=== PATIENT | female | born 1985 | race Caucasian/White ===

== ENCOUNTER 2017-01-17 15:32 | Emergency (ER) | payer SELFPAY ==
[2017-01-17 15:52] VITALS: BP 140/78
--- NOTE | 2017-01-17 16:11 | UC ---
Respiratory Complaint HPI - HPI Summary HPI Summary: 31 yo female with cough sore throat/runny nose x a week or so now wheezing and out of her rescue inhaler no f/c low energy - History of Current Complaint Chief Complaint: UCRespiratory Stated Complaint: SORE THROAT,COUGH,CONGESTION Time Seen by Provider: 01/17/17 15:55 Hx Obtained From: Patient Hx Last Menstrual Period: 1 WEEK AGO Onset/Duration: Gradual Onset Timing: Constant Severity Initially: Moderate Severity Currently: Moderate Pain Intensity: 4 Pain Scale Used: 0-10 Numeric Character: Cough: Nonproductive Aggravating Factors: Nothing Alleviating Factors: Nothing Associated Signs And Symptoms: Positive: Wheezing, Nasal Congestion, Hoarseness , Sinus Discomfort - Allergies/Home Medications Allergies/Adverse Reactions: Allergies Allergy/AdvReac Type Severity Reaction Status Date / Time Sulfa Drugs Allergy Unknown Unknown Verified 01/17/17 15:52 Reaction Details Home Medications: Home Medications Loratadine [Claritin 10 MG CAP] 10 mg PO PRN 01/17/17 [History] PMH/Surg Hx/FS Hx/Imm Hx Previously Healthy: Yes Cardiovascular History: Hypertension Respiratory History: Asthma - Surgical History Surgical History: Yes Surgery Procedure, Year, and Place: C SECTION, CHOLECYSTECTOMY - Family History Known Family History: Positive: Cardiac Disease - gradmother CHF, Hypertension - Social History Alcohol Use: None Substance Use Type: None Smoking Status (MU): Never Smoked Tobacco - Immunization History Most Recent Influenza Vaccination: 05/16/15 (Nasal Mist) Review of Systems Constitutional: Fatigue Skin: Negative Eyes: Negative ENT: Sore Throat, Nasal Discharge, Sinus Congestion, Sinus Pain/Tenderness Respiratory: Cough, Other - wheezing Cardiovascular: Negative Gastrointestinal: Negative Genitourinary: Negative Motor: Negative Neurovascular: Negative Musculoskeletal: Negative Neurological: Negative Psychological: Negative All Other Systems Reviewed And Are Negative: Yes Physical Exam Triage Information Reviewed: Yes Appearance: Well-Appearing, No Pain Distress, Well-Nourished Vital Signs: Initial Vital Signs Temp 97.8 F 01/17/17 15:49 Pulse 73 01/17/17 15:49 Resp 18 01/17/17 15:49 BP 140/78 01/17/17 15:49 Pulse Ox 100 01/17/17 15:49 Vital Signs Reviewed: Yes Eyes: Positive: Conjunctiva Inflamed - L, Discharge - L ENT: Positive: Hearing grossly normal, Pharyngeal erythema, Nasal congestion, Nasal drainage, Tonsillar swelling, Other: - hoarse/bilat mild max sinus tenderness. Negative: Tonsillar exudate, Trismus Neck: Positive: Supple, Nontender, No Lymphadenopathy Respiratory: Positive: Normal breath sounds, No respiratory distress, No accessory muscle use, Wheezing - with forced expiration only Cardiovascular: Positive: RRR, No Murmur Musculoskeletal: Positive: ROM Intact, No Edema Neurological Exam: Normal Neurological: Positive: Alert Psychological Exam: Normal Skin Exam: Normal UC Diagnostic Evaluation - Laboratory O2 Sat by Pulse Oximetry: 100 - normal/not hypoxic Respiratory Course/Dx - Differential Dx/Diagnosis Provider Diagnoses: acute bronchitis. conjunctivitis Discharge - Discharge Plan Condition: Stable Disposition: HOME Prescriptions: Albuterol HFA INHALER* [Ventolin HFA Inhaler*] 2 puff INH QID #1 mdi Amoxicillin (*) [Amoxicillin 875 MG (*)] 875 mg PO BID #20 tab Polymyx/Trimethoprim OPTH* [Polytrim OPHTH*] 1 - 2 drop LEFT EYE QID #1 btl Prednisone [Deltasone] 40 mg PO DAILY #10 tab Patient Education Materials: Acute Bronchitis (ED), Conjunctivitis (ED) Forms: *Work Release Referrals: June MCCARTY,Gabriel Birch [Primary Care Provider] - 4 Days (if not better BP needs following in a few weeks) Additional Instructions: recheck for new or worsening symptoms
== END 2017-01-17 16:19 | disposition home or self-care (01) ==
LOC: UCEAST 15:32
DX: J40 Bronchitis, not specified as acute or chronic (principal); H10.9 Unspecified conjunctivitis
CPT/HCPCS: 99212; G0463

== ENCOUNTER 2017-03-08 16:30 | Emergency (ER) | payer SELFPAY ==
--- NOTE | 2017-03-08 16:43 | UC ---
Skin Complaint HPI - History of Current Complaint Hx Last Menstrual Period: 1 WEEK AGO <Ousmane Gibbons - Last Filed: 03/08/17 16:43> - HPI Summary HPI Summary: Pt presents with sudden onset of pruritic, "bites" on right anterior lower leg that t began as erythematous, purritic "bites, and pt applied OTC corticosteroid cream with improvement of c/o pruritis and woke this morning with octavio, fluid filled blisters that 3 out of 4 blisters ruptured and draining clear serous fluid. 1 blister remains intact with clear fluid ~ dime size. - History of Current Complaint Hx Obtained From: Patient Onset/Duration: Gradual Onset, Lasting Hours - 8, Still Present, Worse Since - blistered since onset. Skin Exposure Onset/Duration: Hours Ago Timing: Constant Onset Severity: Mild Current Severity: Mild Location: Discrete - left anterior left ankle, lower leg Character: Swelling, Pruritus, Raised - blisters Aggravating: Touch Alleviating: OTC Creams/Salves - corticosteroid, improved pruritis Associated Signs & Symptoms: Positive: Rash Related History: Insect Bite/Sting - possible <Marie Gomez NP - Last Filed: 03/08/17 17:25> - History of Current Complaint Time Seen by Provider: 03/08/17 16:42 Stated Complaint: RIGHT FOOT SKIN ISSUE - Allergy/Home Medications Allergies/Adverse Reactions: Allergies Allergy/AdvReac Type Severity Reaction Status Date / Time Sulfa Drugs Allergy Unknown Unknown Verified 03/08/17 16:53 Reaction Details Review of Systems Constitutional: Negative Skin: Rash, Other - blisters Eyes: Negative ENT: Negative Respiratory: Negative Cardiovascular: Negative Gastrointestinal: Negative Genitourinary: Negative Motor: Negative Neurovascular: Negative Musculoskeletal: Negative Neurological: Negative Psychological: Negative All Other Systems Reviewed And Are Negative: Yes <Marie Gomez NP - Last Filed: 03/08/17 17:25> PMH/Surg Hx/FS Hx/Imm Hx - Surgical History Surgical History: Yes Surgery Procedure, Year, and Place: C SECTION, CHOLECYSTECTOMY - Family History Known Family History: Positive: Cardiac Disease - gradmother CHF, Hypertension - Social History Alcohol Use: None Substance Use Type: None Smoking Status (MU): Never Smoked Tobacco - Immunization History Most Recent Influenza Vaccination: 05/16/15 (Nasal Mist) <Ousmane Gibbons - Last Filed: 03/08/17 16:43> Previously Healthy: Yes - Social History Occupation: Employed Full-time Lives: With Family Alcohol Use: None Substance Use Type: None Smoking Status (MU): Never Smoked Tobacco Have You Smoked in the Last Year: No <Marie Gomez NP - Last Filed: 03/08/17 17:25> Physical Exam Triage Information Reviewed: Yes Appearance: Well-Appearing Vital Signs: Initial Vital Signs Temp 97.6 F 03/08/17 16:46 Pulse 76 03/08/17 16:46 Resp 18 03/08/17 16:46 BP 154/89 03/08/17 16:46 Pulse Ox 97 03/08/17 16:46 Vital Signs Reviewed: Yes Eye Exam: Normal ENT Exam: Normal Dental Exam: Normal Neck exam: Normal Respiratory Exam: Normal Cardiovascular Exam: Normal Musculoskeletal Exam: Normal Neurological Exam: Normal Psychological Exam: Normal Skin: Positive: rashes - 4 blisters, 3 ruptured and draining serous fluif. mild erythema surrounding ruptured and intact blister. 4th blister clear fluid blister intact, non tender, <Marie Gomez NP - Last Filed: 03/08/17 17:25> Course/Dx - Differential Diagnoses - Skin Complaint Differential Diagnoses: Cellulitis, Contact Dermatitis, Impetigo - Diagnoses Provider Diagnoses: impetigo. contact dermatits. cellulitis-? <Marie Gomez NP - Last Filed: 03/08/17 17:25> Discharge <Ousmane Gibbons - Last Filed: 03/08/17 16:43> <Marie Gomez NP - Last Filed: 03/08/17 17:25> - Discharge Plan Condition: Stable Disposition: HOME Prescriptions: Cephalexin CAP* [Keflex 500 CAP*] 500 mg PO Q12H #14 cap Mupirocin 2% OINT* [Bactroban 2 % Oint*] 1 applic TOPICAL BID #1 tube Patient Education Materials: Impetigo (ED), Contact Dermatitis (ED) Referrals: June MCCARTY,Gabriel Birch [Primary Care Provider] - If Needed
[2017-03-08 16:53] VITALS: BP 154/89
== END 2017-03-08 17:50 | disposition home or self-care (01) ==
LOC: UCCORT 16:30
DX: L01.00 Impetigo, unspecified (principal); L25.9 Unspecified contact dermatitis, unspecified cause; Z88.2 Allergy status to sulfonamides; Z90.49 Acquired absence of other specified parts of digestive tract
CPT/HCPCS: 87070; 87077; 87186; 87205; 87640; 87641; 99211; G0463

== ENCOUNTER → 2017-04-14 18:36 | Emergency (ER) | payer SELFPAY ==
[~2017-04-14 18:36] MED LIST: PPD test dose* 5 TU/0.1 ML TEST (*USE PPD ORDER SET*) ONE
== END | disposition home or self-care (01) ==
LOC: UCCORT 18:36
DX: Z11.1 Encounter for screening for respiratory tuberculosis (principal)

== ENCOUNTER 2017-12-28 20:50 | Emergency (ER) | payer BC ==
[2017-12-28 21:06] VITALS: BP 146/77
[2017-12-28] MEDS ORDERED: Albuterol/Ipratropium NEB.SOL* Albuterol 2.5 MG/Ipratropium 0.5 MG 3 ML INH ONE (21:11)
[2017-12-28] MEDS ORDERED: Dexamethasone IV* 4 MG/ML 1 ML (4 MG) ONE (21:11)
--- NOTE | 2017-12-28 21:27 | ED ---
Respiratory - HPI Summary HPI Summary: 32yr old female with complaint of SOB, wheezing. Onset a couple of days ago. She states she gets allergies and that they moved down into her chest. She states she has had asthma attacks before and this feels like one. She states she has had URI, allergy type symptoms. She states she usually gets put on a z pack that also helps in addition to steroids. - History of Current Complaint Chief Complaint: UCRespiratory Stated Complaint: CONGESTION UPPER RESPIRATORY Time Seen by Provider: 12/28/17 21:08 Pain Intensity: 0 - Allergy/Home Medications Allergies/Adverse Reactions: Allergies Allergy/AdvReac Type Severity Reaction Status Date / Time Sulfa (Sulfonamide Allergy Rash Verified 12/28/17 21:01 Antibiotics) Home Medications: Home Medications Albuterol HFA INHALER* [Ventolin HFA Inhaler*] 2 puff INH Q6H PRN 12/28/17 [ History Confirmed 12/28/17] PMH/Surg Hx/FS Hx/Imm Hx Endocrine/Hematology History: Denies: Hx Diabetes, Hx Thyroid Disease Cardiovascular History: Reports: Hx Hypertension - not on medication Respiratory History: Reports: Hx Asthma Denies: Hx Chronic Obstructive Pulmonary Disease (COPD) GI History: Denies: Hx Ulcer - Surgical History Surgery Procedure, Year, and Place: C SECTION, CHOLECYSTECTOMY Infectious Disease History: No Infectious Disease History: Denies: Hx Clostridium Difficile, Hx Hepatitis, Hx Human Immunodeficiency Virus (HIV), Hx of Known/Suspected MRSA, Hx Shingles, Hx Tuberculosis, Hx Known/ Suspected VRE, Hx Known/Suspected VRSA, History Other Infectious Disease, Traveled Outside the in Last 30 Days - Family History Known Family History: Positive: Cardiac Disease - gradmother CHF, Hypertension - Social History Alcohol Use: None Substance Use Type: Reports: None Smoking Status (MU): Never Smoked Tobacco Have You Smoked in the Last Year: No Review of Systems Constitutional: Negative Positive: Shortness Of Breath, Cough All Other Systems Reviewed And Are Negative: Yes Physical Exam Triage Information Reviewed: Yes Vital Signs On Initial Exam: Initial Vitals Temp Pulse Resp BP Pulse Ox 99.6 F 88 22 146/77 100 12/28/17 20:58 12/28/17 20:58 12/28/17 20:58 12/28/17 20:58 12/28/17 20:58 Vital Signs Reviewed: Yes Appearance: Positive: Ill-Appearing - SOB, Obese Skin: Positive: Warm, Skin Color Reflects Adequate Perfusion Head/Face: Positive: Normal Head/Face Inspection Eyes: Positive: EOMI ENT: Positive: Normal ENT inspection Neck: Positive: Nontender Respiratory/Lung Sounds: Positive: Decreased Breath Sounds - bilateral Cardiovascular: Positive: RRR. Negative: Murmur Abdomen Description: Positive: Other: - obese Musculoskeletal: Positive: Normal Neurological: Positive: Sensory/Motor Intact, Alert, Oriented to Person Place, Time, CN Intact II-III Psychiatric: Positive: Normal Diagnostics - Vital Signs Vital Signs Temp Pulse Resp BP Pulse Ox 12/28/17 20:58 99.6 F 88 22 146/77 100 - Laboratory Lab Statement: Any lab studies that have been ordered have been reviewed, and results considered in the medical decision making process. Re-Evaluation - Re-Evaluation First Eval Re-Evaluation Time: 21:45 Change: Improved Comment: Air movement is much better and no wheezing. Appears more comfortable. Disposition - Course Course Of Treatment: 32 yr old female with asthmatic bronchitis exacerbation. Z pack, and also steroids. She states she has plenty of albuterol MDI at home. - Diagnoses Provider Diagnoses: Asthmatic bronchitis with acute exacerbation Discharge - Sign-Out/Discharge Documenting (check all that apply): Discharge/Admit/Transfer - Discharge Plan Condition: Good Disposition: HOME Prescriptions: Azithromycin TAB* [Zithromax TAB (Z-JANEEN) 250 mg #6 tabs] 2 tab PO .TODAY, THEN 1 DAILY #1 janeen predniSONE TAB* [Deltasone 20 MG TAB*] 40 mg PO DAILY #8 tab Patient Education Materials: Bronchospasm (ED), Hypertension (ED) Forms: *Work Release Referrals: Gabriel Stout [Primary Care Provider] - 2 Days - Billing Disposition and Condition Condition: GOOD Disposition: Home
[2017-12-28] MEDS ORDERED: Azithromycin TAB* 250 MG PO ONE (21:44)
== END 2017-12-28 22:03 | disposition home or self-care (01) ==
LOC: UCCORT 20:50
DX: J45.901 Unspecified asthma with (acute) exacerbation (principal); Z88.2 Allergy status to sulfonamides
CPT/HCPCS: 99213; A9270-GY; G0463; J1100

== ENCOUNTER 2018-02-07 14:40 | Emergency (ER) | payer BC, OTHER ==
[2018-02-07 14:58] VITALS: BP 150/84
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
== END 2018-02-07 15:22 | disposition home or self-care (01) ==
LOC: UCEAST 14:40
DX: S61.401A Unspecified open wound of right hand, initial encounter (principal); J45.909 Unspecified asthma, uncomplicated; Z88.2 Allergy status to sulfonamides; W01.0XXA Fall on same level from slipping, tripping and stumbling without subsequent striking against object, initial encounter; Y93.01 Activity, walking, marching and hiking; Y92.9 Unspecified place or not applicable
CPT/HCPCS: 99212; G0463

== ENCOUNTER 2019-07-22 10:07 | Emergency (ER) | payer BC, OTHER ==
[2019-07-22 10:41] VITALS: BP 118/81
--- NOTE | 2019-07-22 11:30 | UC ---
FLU HPI - HPI Summary HPI Summary: Sore throat and R swollen gland x 6 days. Feels fatigued.INtermittent fevers at home. nothing makes better/worse. - History of Current Complaint Chief Complaint: UCRespiratory Stated Complaint: CONGESTION,ST Time Seen by Provider: 07/22/19 11:21 Hx Obtained From: Patient Hx Last Menstrual Period: 12/20/17 Pain Intensity: 8 Pain Scale Used: 0-10 Numeric - Allergy/Home Medications Allergies/Adverse Reactions: Allergies Allergy/AdvReac Type Severity Reaction Status Date / Time Sulfa (Sulfonamide Allergy Rash Verified 02/07/18 14:58 Antibiotics) Home Medications: Home Medications Ibuprofen TAB* [Motrin TAB* 400 MG] 400 mg PO Q6H PRN 07/22/19 [History Confirmed 07/22/19] PMH/Surg Hx/FS Hx/Imm Hx Previously Healthy: Yes Respiratory History: Asthma - Surgical History Surgical History: Yes Surgery Procedure, Year, and Place: C SECTION, CHOLECYSTECTOMY - Family History Known Family History: Positive: Cardiac Disease - gradmother CHF, Hypertension - Social History Alcohol Use: Occasionally Substance Use Type: None Smoking Status (MU): Never Smoked Tobacco Have You Smoked in the Last Year: No - Immunization History Most Recent Influenza Vaccination: 05/16/15 (Nasal Mist) Review of Systems All Other Systems Reviewed And Are Negative: Yes Constitutional: Positive: Fever, Fatigue. Negative: Chills Skin: Negative: Rash ENT: Positive: Sore Throat, Sinus Congestion, Other - swollen glands Respiratory: Negative: Shortness Of Breath, Cough Cardiovascular: Negative: Palpitations Gastrointestinal: Negative: Vomiting, Diarrhea, Nausea Physical Exam Triage Information Reviewed: Yes Appearance: Well-Appearing Vital Signs: Initial Vital Signs Temp 98.5 F 07/22/19 10:38 Pulse 101 07/22/19 10:38 Resp 18 07/22/19 10:38 BP 118/81 07/22/19 10:38 Pulse Ox 96 07/22/19 10:38 Vital Signs Reviewed: Yes Eyes: Positive: Conjunctiva Clear ENT: Positive: Pharyngeal erythema, Nasal congestion, TMs normal, Tonsillar swelling - R, Tonsillar exudate Neck: Positive: Supple Respiratory Exam: Normal Cardiovascular Exam: Normal Skin: Negative: Rashes Flu Course/Dx - Course Course Of Treatment: Pharyngitis w/ lymphadenopathy but neg. strep today. Vitals good. did not get flu shot this year. rapid flu was neg. Plan is to tx w/ garggling warm/salty water, iburpofen but strongly advised to go to ED should she develop drooling, fever, nucha rigidity. she verbalized understanding. on exam there was tonsillitis noted. - Differential Dx/Diagnosis Differential Diagnosis/HQI/PQRI: Upper Respiratory Infection, Other Provider Diagnosis: Pharyngitis Discharge ED - Sign-Out/Discharge Documenting (check all that apply): Patient Departure All imaging exams completed and their final reports reviewed: No Studies - Discharge Plan Condition: Good Disposition: HOME Patient Education Materials: Pharyngitis (ED) Referrals: Gabriel Watkins PA [Primary Care Provider] - Additional Instructions: PLease see your pcp if fever or worsening symptoms develop. - Billing Disposition and Condition Condition: GOOD Disposition: Home
[2019-07-22 12:33] LABS: Influenza A Molecular NEGATIVE (Negative); Influenza B Molecular NEGATIVE (Negative)
== END 2019-07-22 12:40 | disposition home or self-care (01) ==
LOC: UCCORT 10:07
DX: J02.9 Acute pharyngitis, unspecified (principal); J45.909 Unspecified asthma, uncomplicated; Z88.2 Allergy status to sulfonamides
CPT/HCPCS: 87651; 99211; G0463

== ENCOUNTER 2019-07-23 10:10 | Emergency (ER) | payer BC ==
--- NOTE | 2019-07-23 10:32 | ED ---
Throat Pain/Nasal Congestion - HPI Summary HPI Summary: 33-year-old female with no significant past medical history presents to the emergency department today complaining of throat pain and trouble swallowing which began approximately 4 days ago. She states she was seen at urgent care yesterday and had a negative strep test and was not given any medication. She states her pain has since gotten worse and reports it as a 6 out of 10 pain. She denies cough but states she has had a fever. She also endorses lymphadenopathy of her neck. Patient denies dental pain, trouble breathing, chest pain, abdominal pain, shortness of breath, rash. Patient denies recent alcohol use or recreational drug use. Family history and social history are noncontributory. - History of Current Complaint Chief Complaint: EDThroatPain Time Seen by Provider: 07/23/19 10:20 Hx Obtained From: Patient Onset/Duration: Gradual Onset Severity: Moderate Associated Signs And Symptoms: Positive: Dysphagia. Negative: Drooling, Wheezing, Hoarseness Cough: None - Allergies/Home Medications Allergies/Adverse Reactions: Allergies Allergy/AdvReac Type Severity Reaction Status Date / Time Sulfa (Sulfonamide Allergy Rash Verified 02/07/18 14:58 Antibiotics) PMH/Surg Hx/FS Hx/Imm Hx Endocrine/Hematology History: Denies: Hx Diabetes, Hx Thyroid Disease Cardiovascular History: Reports: Hx Hypertension - not on medication Respiratory History: Reports: Hx Asthma Denies: Hx Chronic Obstructive Pulmonary Disease (COPD) GI History: Denies: Hx Ulcer - Surgical History Surgery Procedure, Year, and Place: C SECTION, CHOLECYSTECTOMY Infectious Disease History: No Infectious Disease History: Denies: Hx Clostridium Difficile, Hx Hepatitis, Hx Human Immunodeficiency Virus (HIV), Hx of Known/Suspected MRSA, Hx Shingles, Hx Tuberculosis, Hx Known/ Suspected VRE, Hx Known/Suspected VRSA, History Other Infectious Disease, Traveled Outside the [place] in Last 30 Days - Family History Known Family History: Positive: Cardiac Disease - gradmother CHF, Hypertension - Social History Alcohol Use: Occasionally Substance Use Type: Reports: None Smoking Status (MU): Never Smoked Tobacco Have You Smoked in the Last Year: No Review of Systems Positive: Fever Eyes: Negative Positive: Sore Throat. Negative: Epistaxis, Dental Pain Cardiovascular: Negative Respiratory: Negative Gastrointestinal: Negative Genitourinary: Negative Musculoskeletal: Negative Skin: Negative Neurological: Negative Psychological: Normal All Other Systems Reviewed And Are Negative: Yes Physical Exam - Summary Physical Exam Summary: Inspection of the posterior pharynx reveals significant tonsillar edema, erythema which is symmetric. Uvula is midline with no evidence of peritonsillar abscess. Patient is able to manage her secretions and has normal voice. There is mild tonsillar exudate noted bilaterally. There is significant anterior cervical lymphadenopathy bilaterally. Triage Information Reviewed: Yes Vital Signs On Initial Exam: Initial Vitals Temp Pulse Resp BP Pulse Ox 99.5 F 98 18 127/98 96 07/23/19 10:12 07/23/19 10:12 07/23/19 10:12 07/23/19 10:12 07/23/19 10:12 Vital Signs Reviewed: Yes Appearance: Positive: Well-Appearing, No Pain Distress, Well-Nourished Skin: Positive: Warm, Skin Color Reflects Adequate Perfusion Eyes: Positive: EOMI, GRETA ENT: Positive: Tonsillar swelling, Tonsillar exudate, Uvula midline. Negative: Muffled voice, Hoarse voice, Dental tenderness, Sinus tenderness Neck: Negative: No Lymphadenopathy Respiratory/Lung Sounds: Positive: Clear to Auscultation, Breath Sounds Present Cardiovascular: Positive: RRR, S1, S2 Abdomen Description: Positive: Nontender, Soft Bowel Sounds: Positive: Present Musculoskeletal: Positive: Strength/ROM Intact Neurological: Positive: Sensory/Motor Intact, Alert, Oriented to Person Place, Time, Normal Gait, Speech Normal Psychiatric: Positive: Normal AVPU Assessment: Alert Procedures - Sedation Patient Received Moderate/Deep Sedation with Procedure: No Diagnostics - Vital Signs Vital Signs Temp Pulse Resp BP Pulse Ox 07/23/19 10:12 99.5 F 98 18 127/98 96 - Laboratory Lab Statement: Any lab studies that have been ordered have been reviewed, and results considered in the medical decision making process. EENT Course/Dx - Course Course Of Treatment: Patient was evaluated in the emergency department today for throat pain. Patient was seen and examined her vitals are stable and she is afebrile. CENTOR criteria 4. Rapid strep negative. Pt given 125 mg of solumedrol in the emergency department as well as viscous lidocaine swallow for sore throat. Patient was diagnosed with acute pharyngitis and was told to follow up with her primary care provider in 5 days for further evaluation and management of her symptoms. Patient was given an outpatient prescription for prednisone for tonsillar swelling. - Differential Diagnoses Differential Diagnoses: Cellulitis, Laryngitis, Celio's Angina, Periodontic Abscess, Peritonsillar Ulcer, Pharyngitis - Diagnoses Provider Diagnoses: Acute pharyngitis Discharge ED - Sign-Out/Discharge Documenting (check all that apply): Patient Departure - Discharge Plan Condition: Stable Disposition: HOME Prescriptions: predniSONE TAB* [Deltasone TAB*] 50 mg PO DAILY #4 tab Patient Education Materials: Pharyngitis (ED) Referrals: Gabriel Watkins PA [Primary Care Provider] - 3 Days Additional Instructions: Most cases of acute pharyngitis are caused by respiratory viruses and are self- limited. I advise taking over the counter ibuprofen for pain control of your sore throat. I have also prescribed prednisone for your tonsilar swelling. If you develop any worsening or changing symptoms, especially if you feel you begin to have difficulty with breathing or worsening swallowing, you need to return to the ED. Please follow up with PCP in 2-3 days. It was a pleasure taking care of you today. - Billing Disposition and Condition Condition: STABLE Disposition: Home - Attestation Statements Provider Attestation: I was available for consultation for this patient. I did not evaluate the patient or participate in any medical decision making or disposition decisions unless I am specifically named in the chart as having consulted on the patient. If I have consulted on the patient, please see my own ED note on the patient encounter. Garland Weir MD
[2019-07-23] MEDS ORDERED: methylPREDNISolone 125 MG* 2 ML VIAL IM ONE (10:44)
[2019-07-23 11:00] LABS: Rapid Strep Molecular Negative (Negative)
[2019-07-23] MEDS ORDERED: Lidocaine 2% VISCOUS* 15 ML UDC PO ONE (11:11)
[2019-07-23 11:35] VITALS: BP 132/67
== END 2019-07-23 11:30 | disposition home or self-care (01) ==
LOC: ED 10:10
DX: J02.9 Acute pharyngitis, unspecified (principal); I10 Essential (primary) hypertension; J45.909 Unspecified asthma, uncomplicated; Z90.49 Acquired absence of other specified parts of digestive tract; Z88.2 Allergy status to sulfonamides
CPT/HCPCS: 87651; 96372; 99283; J2930

== ENCOUNTER 2024-03-01 12:35 | Observation (INO) ==
[2024-03-01 13:20] LABS: Hematocrit 41.4 % (35-45); Hemoglobin 13.3 g/dL (11.5-14.3); Mean Corpuscular Hemoglobin 23.8 pg (27-33); Mean Corpuscular Hgb Conc 32.1 g/dL (31-36); Platelet Count 339 10^3/uL (150-450); Red Blood Count 5.59 10^6/uL (3.63-4.92); Red Cell Distribution Width 14.5 % (12-17); White Blood Count 8.6 10^3/uL (3.8-11.8)
[2024-03-01 13:22] LABS: INR 1.11 (0.83-1.13)
[2024-03-01] MEDS ORDERED: Sulfur Hexaflouride MICROSPHR 25 MG VIAL ONE (13:27)
[2024-03-01 13:53] LABS: ABS Basophils 0.1 10^3/uL (0.0-0.1); ABS Eosinophils 0.2 10^3/uL (0.0-0.5); ABS Lymphocytes 2.2 10^3/uL (1.0-4.8); ABS Monocytes 0.6 10^3/uL (0.0-0.9); ABS Neutrophils 5.6 10^3/uL (1.5-7.6); ABS Nucleated RBC 0.01 10^3/ul; Lymphocyte % 25.3 %; Microcytosis 2+; Nucleated Red Blood Cells % 0.1 %/100WBC (0.0-0.8)
[2024-03-01] MEDS: Sulfur Hexaflouride MICROSPHR 25 MG VIAL IV ONE (14:01)
[2024-03-01 14:26] LABS: Albumin 4.2 g/dL (3.2-5.2); Albumin/Globulin Ratio 1.4 (1-3); Globulin 2.9 g/dL (2-4); Potassium 3.9 mmol/L (3.5-5.0); Total Bilirubin 0.4 mg/dL (0.2-1.0); Total Protein 7.1 g/dL (6.4-8.9)
[2024-03-01] MEDS ORDERED: Albuterol HFA INHALER 8 gm MDI INH PRN (14:32)
[2024-03-01] MEDS: Heparin 5000 UNITS/ML 1 mL VIAL IV SCH (14:55)
[2024-03-01] MEDS: Heparin - STEMI 5,000 UNITS/ML 1 ml VIAL IV ONE (14:59)
[2024-03-01] MEDS: Heparin DRIP 25,000 UNITS BAG 25,000 UNITS/250 ML BAG IV SCH (15:01)
[2024-03-01 15:25] LABS: High Sensitivity Troponin 1 Hr 24 pg/mL (<15)
[2024-03-01 15:26] LABS: Creatinine, Serum 0.69 mg/dL (0.51-0.95); HDL Cholesterol 40.6 mg/dL; eGFR CKD-EPI 114.6 (>60)
[2024-03-01 16:10] LABS: TSH Ultra Thyroid Stim Horm 1.06 mcIU/mL (0.34-5.60)
[2024-03-01 16:13] LABS: Ferritin 44.7 ng/mL (11-307)
[2024-03-02 05:20] LABS: Anion Gap 7 mmol/L (2-16); Blood Urea Nitrogen 13 mg/dL (6-24); CO2 Carbon Dioxide 25 mmol/L (22-32); Calcium 9.1 mg/dL (8.6-10.3); Chloride 104 mmol/L (101-111); Creatinine, Serum 0.71 mg/dL (0.51-0.95); Glucose 105 mg/dL (70-100); Potassium 4.2 mmol/L (3.5-5.0); Sodium 136 mmol/L (135-145); eGFR CKD-EPI 112.2 (>60)
[2024-03-02 08:10] LABS: HCG Pregnancy < 0.60 mIU/mL
[2024-03-02] MEDS: NS 0.9% 1000 ml BAG 1,000 ML IV SCH (08:23)
[2024-03-02] MEDS ORDERED: Naloxone 0.4 mg VIAL 0.4 mg/ml 1 ml VIAL IV PUSH PRN (08:31)
[2024-03-02] MEDS ORDERED: Flumazenil 0.5 mg/5 ml 0.1 MG/ML 5 ml VIAL IV PRN (08:31)
[2024-03-02] MEDS ORDERED: Midazolam 5 mg/5 ml VIAL 1 mg/ml 5 ml VIAL (5 mg) ONE (08:34)
[2024-03-02] MEDS ORDERED: Iohexol 350 (CONTRAST) 200 ML MDV IV ONE (08:35)
[2024-03-02] MEDS ORDERED: niCARdipine 0.1MG/ML IVPREMIX 20 MG/200 ML BAG IV ONE (08:35)
[2024-03-02] MEDS ORDERED: fentaNYL 100 mcg/2 ml 50 MCG/ML VIAL ONE (08:35)
[2024-03-02] MEDS ORDERED: nitroGLYCERIN DRIP 25,000 MCG/250 ML BTL ONE (08:35)
[2024-03-02] MEDS ORDERED: Heparin 1,000 UNIT/ML 10 ml (10,000 UNITS) CATHLAB/DIALYSIS ONE (08:35)
[2024-03-02] MEDS ORDERED: Lidocaine 1% MPF 5 ML VIAL ONE (08:35)
[2024-03-02] MEDS ORDERED: Heparin 2 UNITS/ML 1000 mls 2,000 ML IV ONE (08:35)
[2024-03-02] MEDS: Midazolam 10 mg/10 ml VIAL 1 mg/ml 10 ml VIAL (10 mg) IV SLOW PU ONE (09:59)
[2024-03-02] MEDS: fentaNYL 100 mcg/2 ml 50 MCG/ML VIAL IV SLOW PU ONE (09:59)
[2024-03-02 11:42] LABS: High Sensitivity Troponin 1 Hr 18 pg/mL (<15)
[2024-03-02 14:42] VITALS: BP 104/46
== END 2024-03-02 16:42 | disposition home or self-care (01) ==
LOC: ED 12:35 → EDHOLD 12:35 → MEDTELE 16:32
PROVIDERS: ADMIT Student in an Organized Health Care Education/Training Program; ATTEND Student in an Organized Health Care Education/Training Program